=== PATIENT | female | born 2000 | race Two or more races ===

== ENCOUNTER 2022-12-04 01:21 | Emergency (ER) | payer BC, OTHER ==
[~2022-12-04] VITALS: Ht 165.1 cm; Wt 69.6 kg
[2022-12-04 01:22] VITALS: BP 119/80
[2022-12-04 04:02] LABS: Amphetamine Screen, Urine Neg (NEGATIVE); Barbiturate Scree,Urine Neg (NEGATIVE); Benzodiazephine Screen, Urine Neg (NEGATIVE); Cannabinoid Screen, Urine Pos (NEGATIVE); Cocaine Screen, Urine Neg (NEGATIVE); Opiate Scree,Urine Neg (NEGATIVE); Phencyclidine Screen, Urine Neg (NEGATIVE)
[2022-12-04 05:04] VITALS: PULSE 67; RESP 16; TEMP 97.6; O2SAT 100
== END 2022-12-04 05:04 | disposition home or self-care (01) ==
LOC: ER 01:24
DX: F41.9 Anxiety disorder, unspecified (principal); F12.10 Cannabis abuse, uncomplicated
CPT/HCPCS: 80307; 81025